=== PATIENT | male | born 1985 ===

== ENCOUNTER → 2023-06-23 09:03 | Outpatient (CLI) | payer OTHER, SELFPAY ==
--- NOTE | ~2023-06-23 | MR_ITS ---
MRI of the left shoulder Technique: Axial proton-density fat-sat images, coronal proton density fat-sat and T2 fat-sat images, and sagittal T1-weighted and T2 fat-sat images were acquired. Clinical History: Pain Findings: There is minimal AC joint degenerative change. Coracoclavicular, coracoacromial, and coraco humeral ligaments are intact. Supraspinatus and infraspinatus tendons are intact, without partial or full-thickness tear. There is minimal tendinosis. Subscapularis tendon is intact. Tendon of the long head of the biceps is intact. No labral tear identified. Inferior glenohumeral ligament is intact. No degenerative change or effusion of the glenohumeral join t. There is minimal fluid distention of the subacromial/subdeltoid bursa. No muscle atrophy or edema. Impression: Mild subacromial/subdeltoid bursitis. Minimal rotator cuff tendinosis. Reviewed, dictated and finalized at [facility]. R SAW OPERATOR Impression: Mild subacromial/subdeltoid bursitis. Minimal rotator cuff tendinosis.
== END ==
DX: M25.512 Pain in left shoulder (principal); M75.52 Bursitis of left shoulder
CPT/HCPCS: 73221